=== PATIENT | female | born 1990 | race Caucasian/White ===

== ENCOUNTER 2022-04-22 17:37 | Outpatient (CLI) | payer OTHER ==
[~2022-04-22] VITALS: Ht 167.6 cm; Wt 110.5 kg
[2022-04-22 19:00] VITALS: PULSE 94
[2022-04-22 19:30] VITALS: PULSE 96
[2022-04-22 19:42] LABS: HEMOGLOBIN 10.6 g/dl (12.5-16.0); MEAN CELL VOLUME 83 fl (80.0-100.0); MEAN CORPUSCULAR HEMOGLOBIN 27 pg (27-31); MEAN CORPUSCULAR HGB CONC 33 g/dl (33.0-37.0); MEAN PLATELET VOLUME 10.9 fl (7.4-10.4); PLATELET COUNT 339 K/mm3 (130-400); RED BLOOD COUNT 3.89 M/mm3 (4.10-5.30); REDCELL DISTRIBUTION WIDTH-CV 12.4 % (11.5-14.5)
[2022-04-22 19:46] LABS: HEMATOCRIT 32.4 % (37.0-47.0)
[2022-04-22 19:56] LABS: ALBUMIN 2.8 gm/dL (3.5-5.0); BILIRUBIN,TOTAL 0.2 mg/dL (0.2-1.2); CALCIUM 8.7 mg/dL (8.4-10.2); CREATININE, serum 0.57 mg/dL (0.57-1.11); POTASSIUM 3.8 mmol/L (3.5-4.5); TOTAL PROTEIN 6.9 gm/dL (6.2-8.1)
[2022-04-22 20:18] LABS: BAND 1 % (0-10); EOSINOPHIL 3 % (0-4); LYMPHOCYTE 19 % (20.0-51.0); NEUTROPHILS 73 % (42.0-75.2); PLATELET ESTIMATE NORMAL (NORMAL)
--- NOTE | 2022-04-22 20:18 | NUR ---
@185 DR. ALEJANDRO WAS NOTIFIED REGARDING A 30 GESTATIONAL AGE PATIENT WITH A COMPLAINT OF RUQ PAIN. PATIENT STATES HER OB IS IN [facility] AND THAT SHE HAD LABS DONE AND ON Wednesday04/20/2022 REGARDING HER PAIN. ORDERS FOR LABS WHERE PLACED. @2019 DR. ALEJANDRO WAS NOTIFIED OF NORMAL LAB RESULTS CALLED BACK TO HIM AND RECOMMEND TAT THE PATIENT SEE HER OB FOR AN PUT PATIENT US. RN VERBALIZED MD ORDERS TO PATIENT AND PATIENT WASN'T HAPPY. PATIENT SNATCHED EQUIPMENT OFF AND SHE AND HER FRIEND BEGIN TO WALK OUT THE DOOR I STATES THERE IS DISCHARGE PAPER THAT NEED TO BE SIGNED PATIENT AND FRIEND CONTIUNE TO WALK. RN NOTIFIED ANTONY CHARGE NURSE AND THE CHARGE NURSE REDIRECTED PT BACK TO THE ROOM, PATIENT SIGNED PAPER WHILE EDUCTATING HER ON THE IMPORTANCE OF FOLLOWING UP WITH HER OB. PATIENT OBSERVED AMBULATING OFF THE UNIT WITH A STEADY GATE CARRYING HER PURSE WITH CELL PHONE IN HAND ACCOMPANIED BY HER FEMALE FRIEND.
[2022-04-22 20:19] LABS: HYPOCHROMIA 1+
== END 2022-04-22 20:22 | disposition home or self-care (01) ==
LOC: LDR 17:37 → LDRO 17:37
PROVIDERS: Obstetrics & Gynecology
DX: O26.893 Other specified pregnancy related conditions, third trimester (principal); R10.11 Right upper quadrant pain; Z3A.28 28 weeks gestation of pregnancy
CPT/HCPCS: OP

== ENCOUNTER 2022-04-27 18:04 | Emergency (ER) | payer OTHER ==
[~2022-04-27] VITALS: Ht 167.6 cm; Wt 110.5 kg
[2022-04-27 18:12] VITALS: TEMP 97.3
[2022-04-27 19:22] VITALS: BP 127/88; PULSE 97
== END 2022-04-27 19:22 | disposition home or self-care (01) ==
LOC: COL.ER 18:04
DX: O9A.213 Injury, poisoning and certain other consequences of external causes complicating pregnancy, third trimester (principal); S61.012A Laceration without foreign body of left thumb without damage to nail, initial encounter; Z3A.29 29 weeks gestation of pregnancy; Z28.310 Unvaccinated for COVID-19; W45.8XXA Other foreign body or object entering through skin, initial encounter; Y93.G3 Activity, cooking and baking